=== PATIENT | female | born 1975 | race Caucasian/White ===

== ENCOUNTER → 2020-02-23 13:51 | Outpatient (BNVA) | payer BC, SELFPAY | PROVIDERS: Family Provider Nurse Practitioner Family; Visit Provider Nurse Practitioner Family | DX: J02.9 Acute pharyngitis, unspecified (principal); Z11.59 Encounter for screening for other viral diseases | CPT/HCPCS: 80053; 85025; 86140; 86308; 87070; 87071; 87880 ==